=== PATIENT | male | born 1950 | race Caucasian/White ===

== ENCOUNTER 2018-03-16 03:07 | Inpatient (IN) | payer MEDICARE, OTHER ==
[~2018-03-16] VITALS: Ht 182.9 cm; Wt 115.3 kg
[~2018-03-16 03:07] MED LIST: ALBUPOW26; HYDR-3546 PO; LATA0.0015 OP; OMEP20CA74 PO; SIMV-8 PO; [UNRECOGNIZED DRUG - CODE] PO
[2018-03-16] MEDS ORDERED: KETOROLAC TROMETH 30 MG/ML 1ML VIAL IV ONE ×2 (04:00→10:45)
[2018-03-16] MEDS ORDERED: SODIUM CHLORIDE 0.9% 1,000 ML IV ONE (04:00)
[2018-03-16] MEDS ORDERED: ONDANSETRON HCL 4 MG/2 ML VIAL IV ONE ×2 (04:00→10:45)
[2018-03-16] MEDS ORDERED: MORPHINE SULFATE 4 MG/ML SYR/VIAL IV ONE ×2 (04:00→12:00)
[2018-03-16 04:14] LABS: Basophils # (auto) 0 uL; Basophils % (auto) 0.6 % (0.0-2.0); Eosinophils # (auto) 0 uL; Eosinophils % (auto) 0.5 % (0.0-7.0); Hematocrit 39.5 % (41.0-53.0); Hemoglobin 13.6 g/dL (13.5-17.5); Lymphocytes # (auto) 1.3 uL; Lymphocytes % (auto) 19.6 % (10.0-50.0); Mean Corpuscular Hemoglobin 33.7 pg (28.0-32.0); Mean Corpuscular Hgb Conc. 34.4 g/dL (32.0-36.0); Mean Corpuscular Volume 97.9 fL (80.0-100.0); Monocytes # (auto) 0.6 uL; Monocytes % (auto) 8.2 % (0.0-12.0); Neutrophils # (auto) 4.8 uL; Neutrophils % (auto) 71.1 % (37.0-80.0); Platelet Count (auto) 228 10^3/uL (140-450); Red Blood Cells 4.04 10^6/uL (4.5-5.90); Red Cell Distribution Width 12.8 % (11.8-14.3); White Blood Cell 6.7 10^3/uL (4.4-10.8)
[2018-03-16 04:51] LABS: Potassium 4.1 mmol/L (3.5-5.1)
[2018-03-16 04:55] LABS: Albumin 3.6 g/dL (3.4-5.0); Calcium 8.7 mg/dL (8.5-10.1)
[2018-03-16 04:58] LABS: Bilirubin, Total 0.5 mg/dL (0.2-1.0); Total Protein 7.7 g/dL (6.4-8.2)
[2018-03-16] MEDS ORDERED: HYDROcodone-ACET 5/325MG TAB PO PRN (06:00)
[2018-03-16] MEDS ORDERED: ACETAMINOPHEN 325 MG TAB PO PRN (06:00)
[2018-03-16] MEDS ORDERED: SODIUM CHLORIDE 0.9% 500 ML IV ONE (06:00)
[2018-03-16] MEDS ORDERED: TEMAZEPAM 15 MG CAP PO PRN (06:00)
[2018-03-16] MEDS ORDERED: MORPHINE SULFATE 4 MG/ML SYR/VIAL IV PRN ×2 (06:00→10:45)
[2018-03-16] MEDS ORDERED: ONDANSETRON HCL 4 MG/2 ML VIAL IV PRN (06:00)
[2018-03-16] MEDS ORDERED: TAMSULOSIN HYDROCHLORIDE 0.4 MG CAP PO ONE (06:00)
[2018-03-16] MEDS: SODIUM CHLORIDE 0.9% 1,000 ML IV SCH ×2 (06:30→23:29)
[2018-03-16 07:45] VITALS: BP 136/63
[2018-03-16 09:38] LABS: INR 0.98 (0.9-1.15); Prothrombin Time 10.5 sec (9.27-12.13)
[2018-03-16 09:44] VITALS: BP 116/60
[2018-03-16] MEDS: FAMOTIDINE 20 MG TAB PO SCH ×2 (10:00→21:09)
[2018-03-16 10:25] LABS: Urine Bacteria NONE SEEN /hpf (None Seen); Urine Blood 1+ /uL (Negative); Urine Mucus FEW (None Seen); Urine Specific Gravity 1.022 (1.001-1.035); Urine WBC 3 /hpf (0 - 3)
[2018-03-16] MEDS ORDERED: cefTRIAXone 1GM/50ML D5W 50 ML IV ONE (10:44)
[2018-03-16] MEDS ORDERED: MIDAZOLAM HCL 1MG/1ML-2 ML VIAL IV PRN (10:45)
[2018-03-16] MEDS ORDERED: ePHEDrine SULFATE 50 MG/ML AMP IV PRN (10:45)
[2018-03-16] MEDS ORDERED: LABETALOL HCL 5 MG/ML 4ML SYRINGE IV PRN (10:45)
[2018-03-16] MEDS ORDERED: HYDROmorphone HCL 2 MG/ML VL IV PRN (10:45)
[2018-03-16] MEDS ORDERED: MIDAZOLAM HCL 1MG/1ML-2 ML VIAL ONE (11:00)
[2018-03-16] MEDS ORDERED: fentaNYL CITRATE 100 MCG/2 ML VL ONE (11:00)
[2018-03-16] MEDS ORDERED: MEPERIDINE HCL (50 MG/ML) 1 ML VIAL ONE (11:01)
[2018-03-16] MEDS ORDERED: DEXAMETHASONE SOD PHOS 10MG/1ML VIAL INJ ONE (11:08)
[2018-03-16] MEDS ORDERED: PROPOFOL 10 MG/ML 20 ML IV ONE (11:08)
[2018-03-16] MEDS ORDERED: PHENYLEPHRINE HCL 10 MG/ML VL ONE (11:33)
[2018-03-16] MEDS ORDERED: SUCCINYLCHOLINE CHLORIDE 20 MG/ML 10ML VIAL IV ONE (11:34)
[2018-03-16] MEDS ORDERED: FUROSEMIDE 20 MG/2 ML VIAL IV ONE (13:15)
[2018-03-16] MEDS ORDERED: BRIM0.159 EACHEYE (15:56)
[2018-03-16] MEDS ORDERED: HYDR4TAB2 PO (15:56)
[2018-03-16] MEDS ORDERED: TIMO0.5S38 EACHEYE (15:56)
[2018-03-16 17:14] VITALS: BP 124/77
[2018-03-16 22:15] VITALS: BP 131/71
[2018-03-17 05:45] VITALS: BP 141/80
[2018-03-17 08:30] VITALS: BP 126/71
[2018-03-17] MEDS: FAMOTIDINE 20 MG TAB PO SCH (09:59)
[2018-03-17 12:30] VITALS: BP 144/76
[2018-03-17] MEDS ORDERED: DOCUSATE SOD 100 MG CAP PO PRN (12:45)
[2018-03-17 14:36] VITALS: BP 144/76
== END 2018-03-17 18:45 | disposition home or self-care (01) | DRG 661 ==
LOC: ER 03:13 → OVERFLOW 05:48 → CENTRAL 07:49
PROVIDERS: ADMIT Nurse Practitioner; ATTEND Internal Medicine Pulmonary Disease
PROC: BT1F1ZZ Fluoroscopy of Left Kidney, Ureter and Bladder using Low Osmolar Contrast (ICD-10-PCS; 2018-03-16)
PROC: 0TF4XZZ Fragmentation in Left Kidney Pelvis, External Approach (ICD-10-PCS; 2018-03-16)
PROC: 0T778DZ Dilation of Left Ureter with Intraluminal Device, Via Natural or Artificial Opening Endoscopic (ICD-10-PCS; principal; 2018-03-16 10:41)
DX: N13.2 Hydronephrosis with renal and ureteral calculous obstruction (principal); N28.1 Cyst of kidney, acquired; J45.909 Unspecified asthma, uncomplicated; E66.01 Morbid (severe) obesity due to excess calories; G47.33 Obstructive sleep apnea (adult) (pediatric); I10 Essential (primary) hypertension; G43.909 Migraine, unspecified, not intractable, without status migrainosus; Z68.34 Body mass index [BMI] 34.0-34.9, adult
CPT/HCPCS: 36415; 71045; 74018; 74176; 80053; 81001; 85025; 85610; 86850; 86900; 86901; 93005; 96361; 96374; 96375; G0378; J0330; J0696; J1100; J1885; J2250; J2405; J2704

== ENCOUNTER → 2018-05-25 | Day surgery (SDC) | payer OTHER ==
[2018-05-22 10:03] LABS: Urine Bacteria NONE SEEN /hpf (None Seen); Urine Blood 2+ /uL (Negative); Urine Mucus FEW (None Seen); Urine Specific Gravity 1.019 (1.001-1.035); Urine WBC 453 /hpf (0 - 3)
[2018-05-22 10:13] LABS: Basophils # (auto) 0.1 uL; Basophils % (auto) 1.4 % (0.0-2.0); Eosinophils # (auto) 0.3 uL; Hematocrit 42.5 % (41.0-53.0); Hemoglobin 14.2 g/dL (13.5-17.5); Lymphocytes # (auto) 1.4 uL; Lymphocytes % (auto) 29.4 % (10.0-50.0); Mean Corpuscular Hemoglobin 32.7 pg (28.0-32.0); Mean Corpuscular Hgb Conc. 33.4 g/dL (32.0-36.0); Mean Corpuscular Volume 97.8 fL (80.0-100.0); Monocytes # (auto) 0.4 uL; Neutrophils # (auto) 2.6 uL; Neutrophils % (auto) 55.2 % (37.0-80.0); Nucleated Red Blood Cells % 0.1 %; Platelet Count (auto) 298 10^3/uL (140-450); Red Blood Cells 4.35 10^6/uL (4.5-5.90); Red Cell Distribution Width 12.7 % (11.8-14.3); White Blood Cell 4.8 10^3/uL (4.4-10.8)
[2018-05-22 10:32] LABS: INR 0.98 (0.9-1.15); Partial Thromboplastin Time 27.4 sec (23.78-33.04); Prothrombin Time 10.5 sec (9.27-12.13)
[2018-05-22 11:23] LABS: Albumin 3.9 g/dL (3.4-5.0); Calcium 9.4 mg/dL (8.5-10.1); Potassium 4.3 mmol/L (3.5-5.1)
[2018-05-22 11:25] LABS: BUN/Creatinine Ratio 14.7; Bilirubin, Total 0.5 mg/dL (0.2-1.0); Total Protein 8.3 g/dL (6.4-8.2)
[~2018-05-25] VITALS: Ht 182.9 cm; Wt 108.9 kg
[~2018-05-25] MED LIST changes: -ALBUPOW26; +BRIM0.159 EACHEYE; -HYDR-3546 PO; +IOHEXOL 300 MG/ML 100ML BOTTLE IJ ONE; +MIDAZOLAM HCL 1MG/1ML-2 ML VIAL ONE; -OMEP20CA74 PO; +ONDANSETRON HCL 4 MG/2 ML VIAL IV ONE; +PROPOFOL 10 MG/ML 20 ML IV ONE; +SUCCINYLCHOLINE CHLORIDE 20 MG/ML 10ML VIAL IV ONE; +TIMO0.5S38 EACHEYE; -[UNRECOGNIZED DRUG - CODE] PO; +ceFAZolin 1GM/50ML 50 ML IV ONE; +ePHEDrine SULFATE 50 MG/ML AMP IV PRN; +fentaNYL CITRATE 100 MCG/2 ML VL IV PRN; +fentaNYL CITRATE 100 MCG/2 ML VL ONE; +hydrALAZINE HCL 20 MG/ML VL IV PRN
[2018-05-25 09:46] VITALS: BP 132/81
== END | disposition home or self-care (01) ==
LOC: SUR 07:11
PROVIDERS: ATTEND Urology
DX: N20.0 Calculus of kidney (principal); J98.8 Other specified respiratory disorders; E66.9 Obesity, unspecified; I25.118 Atherosclerotic heart disease of native coronary artery with other forms of angina pectoris; H40.89 Other specified glaucoma; Z68.32 Body mass index [BMI] 32.0-32.9, adult; Z98.890 Other specified postprocedural states
CPT/HCPCS: 36415; 50590; 52310; 80053; 81001; 85025; 85610; 85730; C1769; J0330; J0690; J2250; J2704; J3010; J7030; Q9967

== ENCOUNTER → 2018-05-26 | Outpatient (CLI) | payer OTHER ==
[~2018-05-26] MED LIST changes: -IOHEXOL 300 MG/ML 100ML BOTTLE IJ ONE; -MIDAZOLAM HCL 1MG/1ML-2 ML VIAL ONE; -ONDANSETRON HCL 4 MG/2 ML VIAL IV ONE; -PROPOFOL 10 MG/ML 20 ML IV ONE; -SUCCINYLCHOLINE CHLORIDE 20 MG/ML 10ML VIAL IV ONE; -ceFAZolin 1GM/50ML 50 ML IV ONE; -ePHEDrine SULFATE 50 MG/ML AMP IV PRN; -fentaNYL CITRATE 100 MCG/2 ML VL IV PRN; -fentaNYL CITRATE 100 MCG/2 ML VL ONE; -hydrALAZINE HCL 20 MG/ML VL IV PRN
== END | disposition home or self-care (01) ==
LOC: LAB 09:48
PROVIDERS: ATTEND Urology
DX: N20.0 Calculus of kidney (principal); Z98.890 Other specified postprocedural states
CPT/HCPCS: 82360